=== PATIENT | male | born 1945 | race African-American/Black ===

== ENCOUNTER 2022-05-23 18:16 | Inpatient (IN) ==
[2022-05-23 19:44] LABS: Basophils % 0.2 % (0.0-0.8); Eosinophils % 0.1 % (0.00-10.9); Hematocrit 45.5 VOL% (42.0-52.0); Immature Granulocytes % 0.5 %; Immature Granulocytes Absolute 0.09 #; Lymphocytes # 0.6 10*3/uL (1.4-4.0); Lymphocytes % 3.4 % (21.2-54.2); Mean Corpuscular Volume 92.5 FL (87-102); Monocytes # 1.5 10*3/uL (0.11-0.8); Monocytes % 8.6 % (1.7-12.7); Neutrophils % 87.2 % (38.7-73.9); Platelet Count 341 T/CUMM (130-400); Red Blood Count 4.92 MC/CUMM (3.8-5.5); Red Cell Distribution Width 13.9 % (9.3-17.3)
[2022-05-23 19:57] LABS: PT Patient Result 11.4 SECS (10.1-12.1); Partial Thromboplastin Time 25.1 SECS (23.7-32.9)
[2022-05-23 20:14] LABS: Albumin 2.9 G/DL (3.4-5.0); Bilirubin,Total 0.5 MG/DL (0.20-1.00); Calcium 9.4 MG/DL (8.5-10.1); Osmolality,Calculated 296.7 MOS/KG (273-304); Potassium 5.7 MMOL/L (3.5-5.1); Total Protein 7.3 G/DL (6.4-8.2)
[2022-05-23 20:18] LABS: Lymphocytes 5 % (20-55); Total Cells Counted 100
[2022-05-23 20:19] LABS: Platelet Estimate Adequate
[2022-05-23 21:39] LABS: Urine Appearance Turbid (Clear); Urine Color Red (Yellow); Urine Specific Gravity 1.025 (1.001-1.035)
[2022-05-23 21:40] LABS: Bilirubin,Urine Small mg/dL (Negative); Blood, Urine Large mg/dL (Negative); Glucose,Urine (UA) Negative (Negative); Ketones,Urine Trace mg/dL (Negative); Nitrite,Urine Positive (Negative); Protein,Urine >=300 mg/dL (Negative); Urine Urobilinogen 0.2 eU/dL (<2.0)
[2022-05-23 21:44] LABS: RBC,Urine 72271 /HPF (0-4)
[2022-05-23] MEDS ORDERED: PIPERACILLIN/TAZOBACTAM 3,375 MG in SODIUM CHLORIDE 0.9% 100 ML IV STA (21:51)
[2022-05-23] MEDS ORDERED: SODIUM CHLORIDE 0.9% 1,000 ML IV STA (21:52)
[2022-05-23] MEDS ORDERED: INSULIN REGULAR 100 UNIT/ML IV STA (21:56)
[2022-05-23] MEDS ORDERED: DEXTROSE 50% 25 GM/50 ML VIAL IV STA (21:57)
[2022-05-23] MEDS ORDERED: SODIUM ZIRCONIUM CYCLOSILICATE 10 GM PACK PO ONE (22:28)
[2022-05-23] MEDS ORDERED: DEXTROSE 10% 250 ML BAG IV STA (22:47)
[2022-05-23] MEDS ORDERED: NICOTINE 21 MG/24 HR PATCH TRANSDERM PRN (23:09)
[2022-05-23] MEDS ORDERED: hydrALAZINE 20 MG/1 ML VIAL IV PRN (23:09)
[2022-05-23] MEDS ORDERED: ACETAMINOPHEN 325 MG TABLET PO PRN (23:09)
[2022-05-23] MEDS ORDERED: ONDANSETRON 4 MG/2 ML VIAL IV PRN (23:09)
[2022-05-23] MEDS ORDERED: guaiFENesin/DM ER 600-30 MG TABLET PO PRN (23:09)
[2022-05-23] MEDS ORDERED: ZALEPLON 5 MG CAPSULE PO PRN (23:09)
[2022-05-23] MEDS ORDERED: DEXTROSE 10% 250 ML BAG IV PRN (23:09)
[2022-05-23] MEDS ORDERED: GLUCAGON 1 MG VIAL IM PRN (23:09)
[2022-05-23] MEDS ORDERED: diphenhydrAMINE CAP 25 MG CAPSULE PO PRN (23:09)
[2022-05-24] MEDS: SODIUM CHLORIDE 0.9% 1,000 ML IV SCH ×3 (02:59→15:05)
[2022-05-24 05:28] LABS: Basophils % 0.2 % (0.0-0.8); Eosinophils % 0.2 % (0.00-10.9); Hematocrit 36.8 VOL% (42.0-52.0); Hemoglobin 12.4 GM/DL (14.0-18.0); Immature Granulocytes % 0.4 %; Immature Granulocytes Absolute 0.06 #; Lymphocytes # 0.8 10*3/uL (1.4-4.0); Lymphocytes % 5.5 % (21.2-54.2); Mean Corpuscular HGB Conc 33.7 GM/DL (32-36); Mean Corpuscular Volume 92.2 FL (87-102); Mean Platelet Volume 9.3 FL (9.6-12.0); Monocytes # 1.5 10*3/uL (0.11-0.8); Monocytes % 10.5 % (1.7-12.7); Neutrophils % 83.2 % (38.7-73.9); Platelet Count 254 T/CUMM (130-400); Red Blood Count 3.99 MC/CUMM (3.8-5.5); Red Cell Distribution Width 13.9 % (9.3-17.3); White Blood Count 14.1 T/CUMM (4-12)
[2022-05-24 05:43] LABS: Calcium 8.6 MG/DL (8.5-10.1); Osmolality,Calculated 300.7 MOS/KG (273-304); Potassium 4.3 MMOL/L (3.5-5.1)
[2022-05-24] MEDS: PANTOPRAZOLE 40 MG TABLET PO SCH (10:19)
[2022-05-24] MEDS: DUTASTERIDE 0.5 MG CAPSULE PO SCH (10:19)
[2022-05-24] MEDS: TAMSULOSIN 0.4 MG CAPSULE PO SCH ×2 (10:19→21:17)
[2022-05-24] MEDS: HEPARIN 5,000 UNIT/1 ML VIAL SUBCUT SCH ×4 (10:20→21:21)
[2022-05-24] MEDS: cefTRIAXone 1,000 MG in SODIUM CHLORIDE 0.9% 100 ML IV SCH (10:20)
[2022-05-25] MEDS: MENTHOL/ZINC OXIDE OINT 71 GM JAR TOP SCH ×3 (04:42→23:41)
[2022-05-25 05:30] LABS: Basophils % 0.3 % (0.0-0.8); Eosinophils # 0.2 10*3/uL (0.0-0.87); Eosinophils % 2.2 % (0.00-10.9); Hematocrit 37.5 VOL% (42.0-52.0); Hemoglobin 12.3 GM/DL (14.0-18.0); Immature Granulocytes % 0.7 %; Immature Granulocytes Absolute 0.07 #; Lymphocytes # 0.8 10*3/uL (1.4-4.0); Lymphocytes % 8.8 % (21.2-54.2); Mean Corpuscular HGB Conc 32.8 GM/DL (32-36); Mean Corpuscular Volume 94.5 FL (87-102); Mean Platelet Volume 9.5 FL (9.6-12.0); Monocytes # 1.1 10*3/uL (0.11-0.8); Monocytes % 11.7 % (1.7-12.7); Neutrophils % 76.3 % (38.7-73.9); Platelet Count 236 T/CUMM (130-400); Red Blood Count 3.97 MC/CUMM (3.8-5.5); Red Cell Distribution Width 13.8 % (9.3-17.3); White Blood Count 9.5 T/CUMM (4-12)
[2022-05-25 05:52] LABS: Calcium 8.7 MG/DL (8.5-10.1); Osmolality,Calculated 289.4 MOS/KG (273-304); Potassium 4.3 MMOL/L (3.5-5.1)
[2022-05-25] MEDS: cefTRIAXone 1,000 MG in SODIUM CHLORIDE 0.9% 100 ML IV SCH (08:30)
[2022-05-25] MEDS: TAMSULOSIN 0.4 MG CAPSULE PO SCH ×2 (09:14→21:16)
[2022-05-25] MEDS: PANTOPRAZOLE 40 MG TABLET PO SCH (09:14)
[2022-05-25] MEDS: DUTASTERIDE 0.5 MG CAPSULE PO SCH (09:14)
[2022-05-25] MEDS: HEPARIN 5,000 UNIT/1 ML VIAL SUBCUT SCH ×2 (09:15→21:17)
[2022-05-25] MEDS ORDERED: MULTIVITAMIN (CENTRUM) TABLET PO SCH (21:00)
[2022-05-25] MEDS ORDERED: DONEPEZIL 10 MG TABLET PO SCH (21:00)
[2022-05-25] MEDS: DOCUSATE SODIUM 100 MG CAPSULE PO SCH (21:18)
[2022-05-25] MEDS: SODIUM CHLORIDE 0.9% 1,000 ML IV SCH (23:45)
[2022-05-26 05:08] LABS: Basophils % 0.4 % (0.0-0.8); Eosinophils # 0.2 10*3/uL (0.0-0.87); Eosinophils % 3.2 % (0.00-10.9); Hematocrit 35.3 VOL% (42.0-52.0); Hemoglobin 11.3 GM/DL (14.0-18.0); Immature Granulocytes % 1.5 %; Immature Granulocytes Absolute 0.11 #; Lymphocytes # 1.1 10*3/uL (1.4-4.0); Lymphocytes % 14.9 % (21.2-54.2); Mean Corpuscular Volume 95.1 FL (87-102); Mean Platelet Volume 9.6 FL (9.6-12.0); Monocytes % 12.9 % (1.7-12.7); Neutrophils % 67.1 % (38.7-73.9); Platelet Count 234 T/CUMM (130-400); Red Blood Count 3.71 MC/CUMM (3.8-5.5); Red Cell Distribution Width 13.6 % (9.3-17.3); White Blood Count 7.5 T/CUMM (4-12)
[2022-05-26 05:25] LABS: Calcium 8.3 MG/DL (8.5-10.1); Osmolality,Calculated 288.3 MOS/KG (273-304); Potassium 3.8 MMOL/L (3.5-5.1)
[2022-05-26] MEDS ORDERED: CHOLECALCIFEROL 1,000 UNIT TABLET PO SCH (09:00)
[2022-05-26] MEDS: SODIUM CHLORIDE 0.9% 1,000 ML IV SCH ×2 (09:42→14:17)
[2022-05-26] MEDS: TAMSULOSIN 0.4 MG CAPSULE PO SCH (09:42)
[2022-05-26] MEDS: cefTRIAXone 1,000 MG in SODIUM CHLORIDE 0.9% 100 ML IV SCH (09:42)
[2022-05-26] MEDS: MENTHOL/ZINC OXIDE OINT 71 GM JAR TOP SCH (09:42)
[2022-05-26] MEDS: DUTASTERIDE 0.5 MG CAPSULE PO SCH (09:42)
[2022-05-26] MEDS: HEPARIN 5,000 UNIT/1 ML VIAL SUBCUT SCH (09:42)
[2022-05-26] MEDS: PANTOPRAZOLE 40 MG TABLET PO SCH (09:42)
[2022-05-26] MEDS: DOCUSATE SODIUM 100 MG CAPSULE PO SCH (09:42)
[2022-05-26 12:15] VITALS: BP 123/83
[2022-05-26] MEDS ORDERED: NITROFURANTOIN MACRO/MONO 100 MG CAPSULE PO SCH (21:00)
== END 2022-05-26 14:02 | disposition home or self-care (01) | DRG 726 ==
LOC: N.ED 18:16 → N.2E 23:09 → N.3E 05-24 02:17
PROVIDERS: ADMIT Hospitalist; ATTEND Hospitalist